=== PATIENT | male | born 1985 | race African-American/Black ===

== ENCOUNTER 2017-01-16 00:25 | Emergency (ER) | payer OTHER ==
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
[2017-01-16] MEDS ORDERED: LIDOCAINE 1%/EPI 1:100000 (50 ML MULTI DOSE VIAL) ONE (00:34)
[2017-01-16 00:42] VITALS: TEMP 98.1; BMI 31.8
--- NOTE | 2017-01-16 01:07 | PDOC ---
[id number] 98 01/16/17 00:30 01/16/17 00:30 01/16/17 00:30 01/16/17 00:30 01/16/17 00:30 ED Treatment Course - LABORATORY CBC & Chemistry Diagram: 01/16/17 04:20 01/16/17 04:20 Medical Decision Making - Medical Decision Making 01/16/17 01:07 Pt seen by the Advanced Practice Provider under my direct supervision Pt interviewed and examined Ancillary studies reviewed I agree with plan as outlined by the Advanced Practice Provider IRINA Ruggiero *DC/Admit/Observation/Transfer Diagnosis at time of Disposition: Avulsion of scalp - Discharge Dispostion Disposition: HOME Condition at time of disposition: Stable - Referrals Referrals: Max Landry MD [Staff Physician] - - Patient Instructions Printed Discharge Instructions: DI for Laceration Repair of the Scalp
[2017-01-16] MEDS ORDERED: TETANUS AND DIPHTHERIA TOXOID 0.5 ML DISP.SYRIN IM ONE (01:23)
[2017-01-16 04:36] LABS: BASOPHIL 1.2 % (0-2.0); MCH 30.7 pg (25.7-33.7); MCHC 33.4 g/dl (32.0-35.9); MEAN CELL VOLUME 91.7 fl (80-96); MEAN PLT VOLUME 8.4 fl (7.5-11.1); NEUTROPHILS 64.8 % (42.8-82.8); PLATELET COUNT 294 K/MM3 (134-434); RDW 13.4 % (11.9-15.9); WHITE BLOOD COUNT 11.5 K/mm3 (4.0-10.0)
[2017-01-16 04:58] LABS: ALBUMIN 3.7 g/dl (3.4-5.0); ALK PHOS 61 U/L (45-117); ANION GAP 9 (8-16); BILIRUBIN,TOTAL 0.3 mg/dL (0.2-1.0); CALCIUM 8.9 mg/dL (8.5-10.1); CO2 28 mmol/L (21-32); COCKROFT - GAULT 121.33; CREATININE 1.2 mg/dL (0.7-1.3); GLUCOSE,RANDOM 111 mg/dL (74-106); SGOT/AST 23 U/L (15-37); SGPT/ALT 25 U/L (12-78); TOT PROT 7.7 g/dl (6.4-8.2)
--- NOTE | 2017-01-16 08:13 | PDOC ---
[id number] 98 01/16/17 00:30 01/16/17 00:30 01/16/17 00:30 01/16/17 00:30 01/16/17 00:30 ED Treatment Course - LABORATORY CBC & Chemistry Diagram: 01/16/17 04:20 01/16/17 04:20 - ADDITIONAL ORDERS Additional order review: Laboratory Results 01/16/17 04:20 Sodium 143 Potassium 4.0 Chloride 106 Carbon Dioxide 28 Anion Gap 9 BUN 11 D Creatinine 1.2 Creat Clearance w eGFR > 60 Random Glucose 111 H Calcium 8.9 Total Bilirubin 0.3 D AST 23 D ALT 25 D Alkaline Phosphatase 61 D Total Protein 7.7 Albumin 3.7 01/16/17 04:20 RBC 4.82 MCV 91.7 MCHC 33.4 RDW 13.4 MPV 8.4 Neutrophils % 64.8 Lymphocytes % 25.8 Monocytes % 6.2 Eosinophils % 2.0 Basophils % 1.2 - Medications Given in the ED: ED Medications Discontinued Medications Generic Name Dose Route Start Last Admin Trade Name Freq PRN Reason Stop Dose Admin Tetanus/Diphtheria Toxoids Adsorbed 0.5 ml 01/16/17 01:23 01/16/17 01:25 Decavac - IM 01/16/17 01:24 0.5 ml .ONCE ONE Administration Medical Decision Making - Medical Decision Making 01/16/17 08:[address] Landry and Dr. Julien. As per Dr. Landry, without any skin to close the wound, will have to let it heal with bactracin and gauze. It was dressed with surgicel by IRINA Ruggiero on overnight shift. Patient will need to f/u with plastic surgery as an outpatient, as there is no acute intervention. 01/16/17 09:38 Called to bedside, patient did not want to be discharged. I explained the conversation with the plastic surgeon, that there is no way to repair the skin at this time, and as per the surgeon, it will have to be followed as an outpatient for wound care. Patient became irate, began to curse at me. Will call nursing supervisor hand silvering. *DC/Admit/Observation/Transfer Diagnosis at time of Disposition: Avulsion of scalp Qualifiers: Encounter type: initial encounter Qualified Code(s): S08.0XXA - Avulsion of scalp, initial encounter - Discharge Dispostion Disposition: HOME Condition at time of disposition: Stable Admit: No - Referrals Referrals: Max Landry MD [Staff Physician] - - Patient Instructions Printed Discharge Instructions: DI for Laceration Repair of the Scalp
[2017-01-16 09:37] VITALS: BP 105/64; PULSE 57
--- NOTE | 2017-01-16 14:14 | EKG ---
Test Reason : Blood Pressure : / mmHG Vent. Rate : 053 BPM Atrial Rate : 053 BPM P-R Int : 148 ms QRS Dur : 104 ms QT Int : 394 ms P-R-T Axes : 029 046 006 degrees QTc Int : 369 ms SINUS BRADYCARDIA POOR R WAVE PROGRESSION ABNORMAL ECG NO PREVIOUS ECGS AVAILABLE CLINICAL CORRELATION IS RECOMMENDED Confirmed by DIANA MENA, JOSUE ([id number]) on 01/16/2017 2:14:24 PM Referred By: Confirmed By:JOSUE ORTIZ MD
== END 2017-01-16 11:00 | disposition home or self-care (01) ==
LOC: JER 00:25 → UNDOADMOB 06:15 → JERBED 06:15 → UNDOADMOB 06:20 → JER 11:00
PROC: 0HQ1XZZ Repair Face Skin, External Approach (ICD-10-PCS; principal; 2017-01-16)
DX: S08.0XXA Avulsion of scalp, initial encounter (principal); Y04.2XXA Assault by strike against or bumped into by another person, initial encounter; Y93.89 Activity, other specified; Y92.9 Unspecified place or not applicable; F17.210 Nicotine dependence, cigarettes, uncomplicated
CPT/HCPCS: 12013-25; 36415; 70450-TC; 80053; 85025; 93005; 93010; 99283-25

== ENCOUNTER 2018-06-30 08:19 | Inpatient (IN) | payer OTHER ==
[2018-06-30 08:46] VITALS: BMI 37.2
--- NOTE | 2018-06-30 09:24 | HP ---
CIWA Score - CIWA Score Nausea/Vomitin Muscle Tremors: 2 Anxiety: 2 Agitation: 2 Paroxysmal Sweats: 1-Minimal Palms Moist Orientation: 0-Oriented Tacttile Disturbances: 1-Very Mild Itch/Numbness Auditory Disturbances: 1-Very Mild Visual Disturbances: 0-None Headache: 2-Mild CIWA-Ar Total Score: 13 Admission ROS BHS - HPI Chief Complaint: i need help to stop drinking alcohol and cocaine Allergies/Adverse Reactions: Allergies Allergy/AdvReac Type Severity Reaction Status Date / Time No Known Allergies Allergy Verified 06/30/18 09:22 History of Present Illness: this 33 years old male with alcohol and cocaine dependence,seeking detox, withdrawal symptom,seen in [facility] last night,refer to come in for detox multiple admissions in detox in the past,last admission in [id number] history of bipolar disorder and depression with multiple admissions last 3 weeks ago syncope alcohol related hypercholesterolemia on med borderlined dm no medication longest period of sobreity 3 years plan for retirement rehab after detox Exam Limitations: No Limitations - Ebola screening Have you traveled outside of the country in the last 21 days: No (N) Have you had contact with anyone from an Ebola affected area: No Have you been sick,other than usual withdrawal symptoms: No Do you have a fever: No - Review of Systems Constitutional: Malaise, Night Sweats EENT: reports: Nose Congestion Respiratory: reports: No Symptoms reported Cardiac: reports: No Symptoms Reported GI: reports: Diarrhea, Nausea, Vomiting, Abdominal cramping : reports: No Symptoms Reported Musculoskeletal: reports: Back Pain, Muscle Pain Integumentary: reports: Dryness Endocrine: reports: No Symptoms Reported, Other (borderlined dm) Hematology: reports: No Symptoms Reported Psychiatric: reports: No Sypmtoms Reported, Judgement Intact, Mood/Affect Appropiate, Orientated x3, Depressed (bipolar disorder) Patient History - Patient Medical History Hx Anemia: No Hx Asthma: No Hx Chronic Obstructive Pulmonary Disease (COPD): No Hx Cancer: No Hx Cardiac Disorders: No Hx Congestive Heart Failure: No Hx Hypertension: No Hx Hypercholesterolemia: Yes (on med) Hx Pacemaker: No HX Cerebrovascular Accident: No Hx Seizures: No Hx Diabetes: Yes (borderlined dm) Hx Gastrointestinal Disorders: No Hx Liver Disease: No Hx Genitourinary Disorders: No Hx Sexually Transmitted Disorders: No Hx Renal Disease (ESRD): No Hx Thyroid Disease: No Hx Human Immunodeficiency Virus (HIV): No (last 2017 negative) Hx Hepatitis C: No Hx Depression: No Hx Suicide Attempt: Yes (ONCE 2011 OVERDOSED ON OXYCONTIN AND COCAINE) Hx Bipolar Disorder: Yes (ON MEDS) Hx Schizophrenia: No Other Medical History: no suicidal,no homicidal - Patient Surgical History Past Surgical History: No Hx Neurologic Surgery: No Hx Cataract Extraction: No Hx Cardiac Surgery: No Hx Lung Surgery: No Hx Breast Surgery: No Hx Breast Biopsy: No Hx Abdominal Surgery: No Hx Appendectomy: No Hx Cholecystectomy: No Hx Genitourinary Surgery: No Hx Section: No Hx Orthopedic Surgery: No Hx Hysterectomy: No Anesthesia Reaction: No - PPD History Previous Implant?: Yes Documented Results: Negative w/o proof Date: 08/23/15 Results: 0mm PPD to be Administered?: Yes - Smoking Cessation Smoking history: Smoker current status UNK Have you smoked in the past 12 months: Yes Aproximately how many cigarettes per day: 20 Cigars Per Day: 0 Hx Chewing Tobacco Use: No Initiated information on smoking cessation: Yes 'Breaking Loose' booklet given: 06/30/18 - Substances Abused Alcohol Route: Oral Frequency: Daily Amount used: 2 PINTS VODKA Age of first use: 21 Date of Last Use: 06/29/18 Cocaine Route: Smoking Frequency: Daily Amount used: $80 Age of first use: 21 Date of Last Use: 06/29/18 PCP Route: Smoking Frequency: 1-3 times last 30 days Amount used: $10-$20 Age of first use: 25 Date of Last Use: 06/27/18 Family Disease History - Family Disease History Family Disease History: Other: Father (alcohol dependent ) Admission Physical Exam BHS - Vital Signs Vital Signs: Vital Signs - 24 hr 06/30/18 06/30/18 08:31 08:39 Temperature 97.2 F L 97.2 F L Pulse Rate 62 62 Respiratory 18 18 Rate Blood Pressure 133/79 133/79 - Physical General Appearance: Yes: Moderate Distress, Tremorous, Irritable, Anxious HEENTM: Yes: Normal ENT Inspection, SORAYA, Pharynx Normal, Other (scar in frontal area) Respiratory: Yes: Lungs Clear, Normal Breath Sounds, No Respiratory Distress Neck: Yes: Within Normal Limits, Supple, Trachea in good position Breast: Yes: Within Normal Limits Cardiology: Yes: Within Normal Limits, Regular Rhythm, S1, S2 Abdominal: Yes: Within Normal Limits, Normal Bowel Sounds, Non Tender, Flat, Soft Genitourinary: Yes: Within Normal Limits Back: Yes: Muscle Spasm Musculoskeletal: Yes: Back pain, Muscle Pain Extremities: Yes: Tremors Neurological: Yes: Within Normal Limits, 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 NML intact, Fully Oriented, Alert, Motor Strength 5/5 Integumentary: Yes: Dry Lymphatic: Yes: Within Normal Limits - Diagnostic (1) Alcohol dependence with uncomplicated withdrawal Current Visit: No Status: Chronic (2) Bipolar I disorder Current Visit: No Status: Active (3) Syncope Current Visit: No Status: Active (4) depression Current Visit: No Status: Active (5) Cocaine dependence Current Visit: No Status: Acute (6) Nicotine dependence Current Visit: No Status: Chronic Qualifiers: Nicotine product type: cigarettes Substance use status: uncomplicated Qualified Code(s): F17.210 - Nicotine dependence, cigarettes, uncomplicated (7) Hypercholesterolemia Current Visit: Yes Status: Acute (8) PCP (phencyclidine) abuse Current Visit: Yes Status: Acute (9) Borderline diabetes mellitus Current Visit: Yes Status: Acute Cleared for Admission [facility] - Detox or Rehab [facility] Level of Care: Medically Managed Detox Regimen/Protocol: Librium [facility] Breath Alcohol Content Breath Alcohol Content: 0 Urine Drug Screen - Results Drug Screen Negative: No Urine Drug Screen Results: DION-Cocaine, BZO-Benzodiazepines
[2018-06-30] MEDS ORDERED: P-EPHED 60MG/TRIPROLIDI 2.5MG TABLET PO PRN (09:34)
[2018-06-30] MEDS ORDERED: MAGNESIUM CITRATE 300 ML BOTTLE PO PRN (09:34)
[2018-06-30] MEDS ORDERED: ACETAMINOPHEN 325 MG TABLET (FP) PO PRN (09:34)
[2018-06-30] MEDS ORDERED: chlordiazePOXIDE HCL 25 MG CAPSULE PO PRN (09:34)
[2018-06-30] MEDS ORDERED: IBUPROFEN 400 MG TABLET (FP) PO PRN (09:34)
[2018-06-30] MEDS ORDERED: MENTHOL/PHENOL 1 EACH UD MM PRN (09:34)
[2018-06-30] MEDS ORDERED: NICOTINE POLACRILEX 2 MG GUM BUC PRN (09:34)
[2018-06-30] MEDS ORDERED: guaiFENesin/D-METHORPHAN HB 10 ML UNIT-DOSE CUPS PO PRN (09:34)
[2018-06-30] MEDS ORDERED: MAG HYDROX/AL HYDROX/SIMETH 30 ML UNIT-DOSE CUP PO PRN (09:34)
[2018-06-30] MEDS ORDERED: hydrOXYzine PAMOATE 50 MG CAPSULE (FP) PO PRN (09:34)
[2018-06-30] MEDS ORDERED: MAGNESIUM HYDROX 2400MG/30ML ORAL SUSPENSION 30 ML CUP PO PRN (09:34)
[2018-06-30] MEDS ORDERED: LOPERAMIDE HCL 2 MG CAPSULE PO PRN (09:34)
--- NOTE | 2018-06-30 11:15 | EKG ---
Test Reason : Blood Pressure : / mmHG Vent. Rate : 065 BPM Atrial Rate : 065 BPM P-R Int : 148 ms QRS Dur : 102 ms QT Int : 396 ms P-R-T Axes : 052 047 018 degrees QTc Int : 411 ms NORMAL SINUS RHYTHM WITH SINUS ARRHYTHMIA NORMAL ECG WHEN COMPARED WITH ECG OF 16-JAN-2017 04:22, CRITERIA FOR SEPTAL INFARCT ARE NO LONGER PRESENT Confirmed by IVAN MENA, EDUARDO ([id number]) on 06/30/2018 11:14:37 AM Referred By: Confirmed By:EDUARDO LOVE MD
[2018-06-30] MEDS: chlordiazePOXIDE HCL 25 MG CAPSULE PO SCH ×3 (11:54→22:05)
[2018-06-30] MEDS: NICOTINE 21 MG/24 HOURS TOPICAL PATCH TD SCH (11:59)
[2018-06-30] MEDS: PRENATAL VITAMINS W/ FOLIC ACID TABLET (FP) PO SCH (11:59)
--- NOTE | 2018-06-30 13:38 | CONSULT ---
[facility] Psychiatric Consult - Data Date of interview: 06/30/18 Admission source: [facility] Identifying data: Readmission to [facility] for this 33 y/o AA male self- referred for detoxification treatment (alcohol and cocaine).Admitted to [address] [place] [address].Patient is single without dependents,homeless,unemployed and supported on Public Assistance. Substance Abuse History: Discussed with the patient in this session.Details in current [facility] report that follows : Smoking history: Smoker current status UNK. Have you smoked in the past 12 months: Yes. Aproximately how many cigarettes per day: 20. Cigars Per Day: 0. Hx Chewing Tobacco Use: No. Initiated information on smoking cessation: Yes. 'Breaking Loose' booklet given: . - Substances Abused. Alcohol. Route: Oral. Frequency: Daily. Amount used: 2 PINTS VODKA. Age of first use: 21. Date of Last Use: 06/29/18. Cocaine. Route: Smoking. Frequency: Daily. Amount used: $80. Age of first use: 21. Date of Last Use: 06/29/18. PCP. Route: Smoking. Frequency: 1-3 times last 30 days. Amount used: $10-$20. Age of first use: 25. Date of Last Use: 06/27/18 Medical History: Hypercholesterolemia. Psychiatric History: First contact with Psychiatry (2009) [facility].Diagnosed at the time with Bipolar Disorder.Patient presents with a history of 3-5 psychiatric hospitalizations ([facility]) .Prescribed a regimen of trazodone,gabapentin and trazodone.Mr Camejo admits to being chronically non-adherent to psychiatric [facility] care + medications.Does not keep his appointments and gets his medications refillls at various [facility] emergency room settings. Denies histroy of suicide attempts. Physical/Sexual Abuse/Trauma History: Patient denies history of abuse. Additional Comment: Urine Drug Screen Results: DION-Cocaine, BZO- Benzodiazepines.Noted. Mental Status Exam - Mental Status Exam Alert and Oriented to: Time, Place, Person Cognitive Function: Good Patient Appearance: Well Groomed (obese) Mood: Nervous, Withdrawn Affect: Mood Congruent Patient Behavior: Fatigued, Cooperative Speech Pattern: Clear, Appropriate Voice Loudness: Normal Thought Process: Goal Oriented Thought Disorder: Not Present Hallucinations: Denies Suicidal Ideation: Denies Homicidal Ideation: Denies Insight/Judgement: Poor Sleep: Poorly, Difficulty falling asleep Appetite: Good Muscle strength/Tone: Normal Gait/Station: Normal Psychiatric Findings - Problem List ([place] 1, 2,3) (1) Alcohol dependence with uncomplicated withdrawal Current Visit: Yes Status: Acute (2) Cocaine dependence Current Visit: Yes Status: Acute (3) Nicotine dependence Current Visit: Yes Status: Chronic Qualifiers: Nicotine product type: cigarettes Substance use status: uncomplicated Qualified Code(s): F17.210 - Nicotine dependence, cigarettes, uncomplicated (4) Schizoaffective disorder Current Visit: Yes Status: Chronic Comment: As per records and self-report. (5) Substance induced mood disorder Current Visit: Yes Status: Acute (6) Insomnia Current Visit: Yes Status: Acute (7) Non-compliance Current Visit: Yes Status: Chronic Comment: Never keeps [facility] clinic appointments. Stopped taking medications for weeks at a time. - Initial Treatment Plan Initial Treatment Plan: Psychoeducation.Sleep hygiene.Detoxification in progress.Medications reconciled : trazodone 100 mg po hs + depakote 500 mg po bid + abilify 10 mg po daily.Side effects/benefits of each medication are explained to the patient.Mr Camejo agrees to this plan of care. Valproic acid level requested.Will follow.Observation.
[2018-06-30 14:49] LABS: URINE APPEARANCE CLEAR; URINE BILIRUBIN NEGATIVE (<2.0 mg/dL); URINE COLOR YELLOW; URINE GLUCOSE (UA) NEGATIVE (NEGATIVE); URINE KETONE 1+ (NEGATIVE); URINE LEUK ESTERASE NEGATIVE (NEGATIVE); URINE NITRITE NEGATIVE (NEGATIVE); URINE PROTEIN NEGATIVE (NEGATIVE)
[2018-06-30] MEDS ORDERED: DIVALPROEX SODIUM 250 MG TABLET E.C. PO SCH (22:00)
[2018-06-30] MEDS ORDERED: MELATONIN 5 MG TABLETS PO PRN (22:00)
[2018-06-30] MEDS: THIAMINE HCL 100 MG TABLET (FP) PO SCH (22:05)
[2018-06-30] MEDS: DIVALPROEX SODIUM 500 MG TABLET E.C. PO SCH (22:06)
[2018-06-30] MEDS: traZODone HCL 100 MG TABLET (FP) PO SCH (22:06)
[2018-07-01] MEDS: chlordiazePOXIDE HCL 25 MG CAPSULE PO SCH ×4 (06:12→22:51)
[2018-07-01] MEDS ORDERED: ARIPiprazole 15 MG TABLET PO SCH (10:00)
[2018-07-01] MEDS: ARIPiprazole 10 MG TABLET PO SCH (10:11)
[2018-07-01] MEDS: DIVALPROEX SODIUM 500 MG TABLET E.C. PO SCH ×2 (10:11→22:51)
[2018-07-01] MEDS: PRENATAL VITAMINS W/ FOLIC ACID TABLET (FP) PO SCH (10:12)
[2018-07-01] MEDS: NICOTINE 21 MG/24 HOURS TOPICAL PATCH TD SCH (10:12)
--- NOTE | 2018-07-01 10:20 | PN ---
[facility] CIWA - CIWA Score Nausea/Vomitin-No Nausea/No Vomiting Muscle Tremors: 2 Anxiety: 4-Mod. Anxious/Guarded Agitation: 5 Paroxysmal Sweats: 1-Minimal Palms Moist Orientation: 0-Oriented Tacttile Disturbances: 0-None Auditory Disturbances: 0-None Visual Disturbances: 0-None Headache: 0-None Present CIWA-Ar Total Score: 12 BHS Progress Note (SOAP) Subjective: irritable, anxious,chills Objective: 07/01/18 10:20 Vital Signs Temperature 96.6 F L 07/01/18 09:06 Pulse Rate 73 07/01/18 09:06 Respiratory Rate 18 07/01/18 09:06 Blood Pressure 126/68 07/01/18 09:06 O2 Sat by Pulse Oximetry (%) Laboratory Last Values POC Glucometer 127 UNITS (80-120) 07/01/18 06:12 Urine Color Yellow 06/30/18 12:15 Urine Appearance Clear 06/30/18 12:15 Urine pH 5.0 (5.0-8.0) 06/30/18 12:15 Ur Specific [place] 1.029 (1.001-1.035) 06/30/18 12:15 Urine Protein Negative (NEGATIVE) 06/30/18 12:15 Urine Glucose (UA) Negative (NEGATIVE) 06/30/18 12:15 Urine Ketones 1+ (NEGATIVE) H 06/30/18 12:15 Urine Blood Negative (NEGATIVE) 06/30/18 12:15 Urine Nitrite Negative (NEGATIVE) 06/30/18 12:15 Urine Bilirubin Negative (<2.0 mg/dL) 06/30/18 12:15 Urine Urobilinogen 2.0 mg/dL (0.2-1.0) 06/30/18 12:15 Ur Leukocyte Esterase Negative (NEGATIVE) 06/30/18 12:15 additional labs pending 07/01/18 14:03 Aox3 no distress, irritable no adventitious breath sound s full ROM ambulating in the unit Assessment: 07/01/18 14:04 withdrawal sx Plan: increase po fluids psych consult: request for psych med adjustment continue detox continue to monitor
[2018-07-01 11:20] LABS: HEMOGLOBIN 15.5 GM/dL (11.7-16.9); MCH 30.4 pg (25.7-33.7); MCHC 32.4 g/dl (32.0-35.9); MEAN PLT VOLUME 9.4 fl (7.5-11.1); PLATELET COUNT 243 K/MM3 (134-434); RDW 14.1 % (11.9-15.9); WHITE BLOOD COUNT 6.4 K/mm3 (4.0-10.0)
[2018-07-01 11:44] LABS: ALBUMIN 4.2 g/dl (3.4-5.0); ALK PHOS 55 U/L (45-117); ANION GAP 11 MMOL/L (8-16); BILIRUBIN,TOTAL 0.6 mg/dL (0.2-1); BLOOD UREA NITROGEN 16 mg/dL (7-18); CALCIUM 9.3 mg/dL (8.5-10.1); CHLORIDE 103 mmol/L (98-107); CO2 27 mmol/L (21-32); CREATININE 1.3 mg/dL (0.55-1.3); GLUCOSE,RANDOM 62 mg/dL (74-106); POTASSIUM 4.4 mmol/L (3.5-5.1); SGOT/AST 30 U/L (15-37); SGPT/ALT 36 U/L (13-61); SODIUM 141 mmol/L (136-145); TOT PROT 8.2 g/dl (6.4-8.2)
[2018-07-01] MEDS: traZODone HCL 100 MG TABLET (FP) PO SCH (22:51)
[2018-07-01] MEDS: THIAMINE HCL 100 MG TABLET (FP) PO SCH (22:51)
[2018-07-02] MEDS: chlordiazePOXIDE HCL 25 MG CAPSULE PO SCH (07:21)
[2018-07-02] MEDS: DIVALPROEX SODIUM 500 MG TABLET E.C. PO SCH ×2 (10:11→22:37)
[2018-07-02] MEDS: ARIPiprazole 10 MG TABLET PO SCH (10:11)
[2018-07-02] MEDS: NICOTINE 21 MG/24 HOURS TOPICAL PATCH TD SCH (10:12)
[2018-07-02] MEDS: chlordiazePOXIDE 5 MG CAPSULE PO SCH ×3 (10:13→22:37)
[2018-07-02] MEDS: PRENATAL VITAMINS W/ FOLIC ACID TABLET (FP) PO SCH (10:15)
--- NOTE | 2018-07-02 17:17 | PN ---
[facility] CIWA - CIWA Score Nausea/Vomitin-No Nausea/No Vomiting Muscle Tremors: 3 Anxiety: 3 Agitation: 3 Paroxysmal Sweats: 1-Minimal Palms Moist Orientation: 0-Oriented Tacttile Disturbances: 0-None Auditory Disturbances: 0-None Visual Disturbances: 0-None Headache: 0-None Present CIWA-Ar Total Score: 10 S Progress Note (SOAP) Subjective: tremor sweat trouble sleep at night Objective: 07/02/18 17:16 Vital Signs Temperature 98.2 F 07/02/18 14:10 Pulse Rate 69 07/02/18 14:10 Respiratory Rate 16 07/02/18 14:10 Blood Pressure 122/62 07/02/18 14:10 O2 Sat by Pulse Oximetry (%) Laboratory Last Values WBC 6.4 K/mm3 (4.0-10.0) 07/01/18 06:00 RBC 5.10 M/mm3 (4.00-5.60) 07/01/18 06:00 Hgb 15.5 GM/dL (11.7-16.9) 07/01/18 06:00 Hct 48.0 % (35.4-49) 07/01/18 06:00 MCV 94.0 fl (80-96) 07/01/18 06:00 MCH 30.4 pg (25.7-33.7) 07/01/18 06:00 MCHC 32.4 g/dl (32.0-35.9) 07/01/18 06:00 RDW 14.1 % (11.9-15.9) 07/01/18 06:00 Plt Count 243 K/MM3 (134-434) 07/01/18 06:00 MPV 9.4 fl (7.5-11.1) D 07/01/18 06:00 Sodium 141 mmol/L (136-145) 07/01/18 06:00 Potassium 4.4 mmol/L (3.5-5.1) 07/01/18 06:00 Chloride 103 mmol/L (98-107) 07/01/18 06:00 Carbon Dioxide 27 mmol/L (21-32) 07/01/18 06:00 Anion Gap 11 MMOL/L (8-16) 07/01/18 06:00 BUN 16 mg/dL (7-18) 07/01/18 06:00 Creatinine 1.3 mg/dL (0.55-1.3) 07/01/18 06:00 Creat Clearance w eGFR > 60 (>60) 07/01/18 06:00 POC Glucometer 121 UNITS (80-120) 07/02/18 07:14 Random Glucose 62 mg/dL (74-106) L 07/01/18 06:00 Calcium 9.3 mg/dL (8.5-10.1) 07/01/18 06:00 Total Bilirubin 0.6 mg/dL (0.2-1) 07/01/18 06:00 AST 30 U/L (15-37) 07/01/18 06:00 ALT 36 U/L (13-61) 07/01/18 06:00 Alkaline Phosphatase 55 U/L (45-117) 07/01/18 06:00 Total Protein 8.2 g/dl (6.4-8.2) 07/01/18 06:00 Albumin 4.2 g/dl (3.4-5.0) 07/01/18 06:00 Urine Color Yellow 06/30/18 12:15 Urine Appearance Clear 06/30/18 12:15 Urine pH 5.0 (5.0-8.0) 06/30/18 12:15 Ur Specific [place] 1.029 (1.001-1.035) 06/30/18 12:15 Urine Protein Negative (NEGATIVE) 06/30/18 12:15 Urine Glucose (UA) Negative (NEGATIVE) 06/30/18 12:15 Urine Ketones 1+ (NEGATIVE) H 06/30/18 12:15 Urine Blood Negative (NEGATIVE) 06/30/18 12:15 Urine Nitrite Negative (NEGATIVE) 06/30/18 12:15 Urine Bilirubin Negative (<2.0 mg/dL) 06/30/18 12:15 Urine Urobilinogen 2.0 mg/dL (0.2-1.0) 06/30/18 12:15 Ur Leukocyte Esterase Negative (NEGATIVE) 06/30/18 12:15 Valproic Acid 19.1 ug/ml (50-100) L 07/01/18 07:47 RPR Titer Nonreactive (NONREACTIVE) 07/01/18 06:00 lab noted Assessment: 07/02/18 17:16 withdrawal sx Plan: continue detox
[2018-07-02] MEDS ORDERED: ATORVASTATIN CA 10 MG TABLET (FP) PO SCH (22:00)
[2018-07-02] MEDS: THIAMINE HCL 100 MG TABLET (FP) PO SCH (22:37)
[2018-07-02] MEDS: traZODone HCL 100 MG TABLET (FP) PO SCH (22:37)
[2018-07-03] MEDS: chlordiazePOXIDE 5 MG CAPSULE PO SCH (05:19)
[2018-07-03 09:23] VITALS: BP 114/96; PULSE 76; TEMP 97.5
--- NOTE | 2018-07-03 10:09 | PN ---
[facility] Progress Note (SOAP) Subjective: sweats irritable Objective: 07/03/18 10:09 Vital Signs Temperature 97.5 F L 07/03/18 09:22 Pulse Rate 76 07/03/18 09:22 Respiratory Rate 18 07/03/18 09:22 Blood Pressure 114/96 07/03/18 09:22 O2 Sat by Pulse Oximetry (%) aaox3 lying in bed no acute distress Assessment: 07/03/18 10:10 mild withdrawal sx Plan: continue detox d/c in am
[2018-07-03] MEDS: ARIPiprazole 10 MG TABLET PO SCH (10:35)
[2018-07-03] MEDS: NICOTINE 21 MG/24 HOURS TOPICAL PATCH TD SCH (10:35)
[2018-07-03] MEDS: PRENATAL VITAMINS W/ FOLIC ACID TABLET (FP) PO SCH (10:35)
[2018-07-03] MEDS: DIVALPROEX SODIUM 500 MG TABLET E.C. PO SCH (10:35)
[2018-07-03] MEDS ORDERED: chlordiazePOXIDE HCL 10 MG CAPSULE PO SCH (11:00)
--- NOTE | 2018-07-03 11:03 | PN ---
[facility] Progress Note Note: pt discharged today due to his behavior. Pt was being spoken to when he began to threaten to hurt staff began to be verbally abusive and aggressive by stating " I am going to fuck you up you fucking bitch." Security was called to have pt escorted off the unit. Cristian patient reporting process consultant/liaison spoken with about discharging pt today. It was agreed for pt to leave today, aftercare paper work provided to pt. Pt was AAOx3 no withdrawal s/s noted.
--- NOTE | 2018-07-03 11:05 | DS ---
[facility] Detox Discharge Summary Admission Date: 06/30/18 - History Present History: Alcohol Dependence - Physical Exam Results Vital Signs: Vital Signs Temperature 97.5 F L 07/03/18 09:22 Pulse Rate 76 07/03/18 09:22 Respiratory Rate 18 07/03/18 09:22 Blood Pressure 114/96 07/03/18 09:22 O2 Sat by Pulse Oximetry (%) - Treatment Hospital Course: Discharged Condition Good - Medication Discharge Medications: Ambulatory Orders Aripiprazole [Abilify -] 15 mg PO DAILY 07/15/17 Divalproex Sodium [Depakote] 750 mg PO BID 07/15/17 traZODone HCL [Desyrel -] 100 mg PO HS 07/15/17 Simvastatin 5 mg PO HS 06/30/18 Gabapentin 100 mg PO TID 07/01/18 - AMA Did Patient Leave Against Medical Advice: No (involuntary d/c today)
[2018-07-03 14:46] LABS: CHOLESTEROL 188 mg/dL (50-200); HDL CHOLESTEROL 56 mg/dL (40-60); TRIGLYCERIDES 274 mg/dL (0-150)
== END 2018-07-03 10:50 | disposition home or self-care (01) | DRG 774 ==
LOC: YASAS 08:19 → Y6N 10:09
PROC: HZ2ZZZZ Detoxification Services for Substance Abuse Treatment (ICD-10-PCS; principal; 2018-06-30)
DX: F10.230 Alcohol dependence with withdrawal, uncomplicated (principal); F14.20 Cocaine dependence, uncomplicated; F16.10 Hallucinogen abuse, uncomplicated; F17.210 Nicotine dependence, cigarettes, uncomplicated; F25.9 Schizoaffective disorder, unspecified; F19.24 Other psychoactive substance dependence with psychoactive substance-induced mood disorder; F31.89 Other bipolar disorder; F91.8 Other conduct disorders; E78.00 Pure hypercholesterolemia, unspecified; R73.03 Prediabetes; G47.00 Insomnia, unspecified; Z91.19 Patient's noncompliance with other medical treatment and regimen; Z91.5 Personal history of self-harm
CPT/HCPCS: 36415; 80053; 80061; 80164; 81003; 82962; 83721; 85027; 86593; 93005; 93010